=== PATIENT | male | born 1985 | race Hispanic/Latino ===

== ENCOUNTER 2019-01-11 20:52 | Emergency (ER) | payer OTHER ==
[~2019-01-11] VITALS: Ht 172.7 cm; Wt 120.2 kg
[2019-01-11] MEDS ORDERED: TYLENOL WITH C1 EACH PO (21:54)
[2019-01-11] MEDS ORDERED: CLINDAMYCIN HC300 MG PO (21:55)
[2019-01-11] MEDS ORDERED: BACTRIM DS TAB1 EACH PO (21:55)
== END 2019-01-11 21:58 | disposition home or self-care (01) ==
LOC: ER 20:52
DX: L02.415 Cutaneous abscess of right lower limb (principal); L03.115 Cellulitis of right lower limb
CPT/HCPCS: 99282